=== PATIENT | male | born 1930 | race Caucasian/White ===

== ENCOUNTER 2018-10-14 12:41 | Emergency (ER) | payer MEDICARE, OTHER ==
[2018-10-14] MEDS ORDERED: Ondansetron 4 MG Tab.DIS PO ONE (13:12)
--- NOTE | 2018-10-14 13:57 | EDM.PDOC ---
ED HPI GENERAL MEDICAL PROBLEM - General Chief Complaint: Gastrointestinal Problem Stated Complaint: Vomiting Time Seen by Provider: 10/14/18 12:50 Source of Information: Reports: Patient, Family (Patient's son and give some of the history as well.) History Limitations: Reports: No Limitations - History of Present Illness INITIAL COMMENTS - FREE TEXT/NARRATIVE: 88-year-old male with history of intermittent vomiting for years who apparently has had worse vomiting since 10/12/2018. He had 3-4 episodes of vomiting yesterday and 5 episodes of vomiting today. Each time he was able to drink liquids after the vomiting and was able to tolerate those well. He apparently is not eaten much since 10/12/2018. No bowel movement today. But a normal bowel movement yesterday. No abdominal pain. He has mild nausea now. No weakness or dizziness. No chest pain. No trouble breathing. He rates his pain as a 0/10. There are no other associated signs or symptoms. There are no other modifying factors. Onset: Other (Patient with ongoing problems with vomiting for the past few years. Has been evaluated at the [facility] with no recommendations or solution per family.) Duration: Getting Worse (Increased vomiting since 10/12/2018. Vomiting 5 today and 3-4 yesterday.) Location: Reports: Other (No pain) Quality: Reports: Other (No pain) Severity: Mild (Nausea only and this is mild) Improves with: Reports: None Worsens with: Reports: Other (Apparently the son feels that he has vomiting after eating meat. He is able to swallow water after the vomiting without any problems.) Context: Reports: Other (As above) Associated Symptoms: Reports: No Other Symptoms (Other than above) Other Treatments UI UX DEVELOPER: Nothing - Related Data Allergies Allergy/AdvReac Type Severity Reaction Status Date / Time No Known Allergies Allergy Verified 10/14/18 12:53 Home Meds: Home Meds Ondansetron [Zofran ODT] 4 mg PO Q6H PRN #12 tab.dis 10/14/18 [Rx] Past Medical History HEENT History: Reports: Impaired Vision Genitourinary History: Reports: Renal Calculus - Past Surgical History HEENT Surgical History: Reports: Tonsillectomy GI Surgical History: Reports: Colonoscopy, EGD Social & Family History - Tobacco Use Smoking Status *Q: Never Smoker - Caffeine Use Caffeine Use: Reports: Coffee - Alcohol Use Alcohol Use History: Yes Alcohol Use Frequency: Rarely - Living Situation & Occupation Living situation: Reports: (He is here with his and his son.) Occupation: Retired (He is a retired pharmacist.) Social History Comment: He lives independently with his . ED ROS GENERAL - Review of Systems Review Of Systems: See Below Constitutional: Reports: Fatigue HEENT: Reports: No Symptoms Respiratory: Reports: No Symptoms Cardiovascular: Reports: No Symptoms Endocrine: Reports: Fatigue GI/Abdominal: Reports: Nausea, Vomiting : Reports: No Symptoms Musculoskeletal: Reports: No Symptoms Skin: Reports: No Symptoms Neurological: Denies: Dizziness, Headache, Gait Disturbance Hematologic/Lymphatic: Reports: No Symptoms Immunologic: Reports: No Symptoms ED EXAM, GENERAL - Physical Exam Exam: See Below Exam Limited By: No Limitations General Appearance: Alert, WD/WN, No Apparent Distress Eye Exam: Bilateral Eye: EOMI, Normal Inspection, PERRL Ears: Normal External Exam, Hearing Grossly Normal Nose: Normal Inspection, Normal Mucosa, No Blood Throat/Mouth: Normal Inspection, Normal Oropharynx, Normal Voice, No Airway Compromise Head: Atraumatic, Normocephalic Neck: Normal Inspection, Supple, Non-Tender, Full Range of Motion Respiratory/Chest: No Respiratory Distress, Lungs Clear, Normal Breath Sounds, No Accessory Muscle Use, Chest Non-Tender Cardiovascular: Normal Peripheral Pulses, Regular Rate, Rhythm, No JVD, No Murmur Peripheral Pulses: 2+: Radial (L), Radial (R) GI/Abdominal: Normal Bowel Sounds, Soft, Non-Tender, No Organomegaly, No Mass Back Exam: Normal Inspection Extremities: Normal Inspection, Normal Range of Motion, Non-Tender, No Pedal Edema, Normal Capillary Refill Neurological: Alert, Oriented, CN II-XII Intact, Normal Cognition, No Motor/ Sensory Deficits Psychiatric: Normal Affect, Normal Mood Skin Exam: Warm, Dry, Intact, Normal Color, Rash (Rash on scalp and face which is reported to be chronic.) Lymphatic: No Adenopathy Course - Vital Signs Last Recorded V/S: Last Vital Signs Temp 36.7 C 10/14/18 12:45 Pulse 81 10/14/18 12:45 Resp 16 10/14/18 12:45 BP 115/56 L 10/14/18 12:45 Pulse Ox 97 10/14/18 12:45 Orthostatic Blood Pressure [ 93/69 Standing] Orthostatic Blood Pressure [ 109/59 Sitting] Orthostatic Blood Pressure [ 111/58 Supine] - Orders/Labs/Meds Orders: Active Orders 24 hr Category Date Time Status Orthostatic Vital Signs [RC] ASDIRECTED Care 10/14/18 13:10 Active Labs: Laboratory Tests 10/14/18 10/14/18 10/14/18 Range/Units 13:35 13:35 13:35 WBC 7.5 (4.5-12.0) X10-3/uL RBC 4.05 L (4.30-5.75) x10(6)uL Hgb 13.2 L (13.5-17.8) g/dL Hct 37.6 (30.0-51.3) % MCV 92.7 (80-96) fL MCH 32.6 (27.7-33.6) pg MCHC 35.2 (32.2-35.4) g/dL RDW 12.8 (11.5-15.5) % Plt Count 201 (125-369) X10(3)uL MPV 8.0 (7.4-10.4) fL Neut % (Auto) 61.2 (46-82) % Lymph % (Auto) 26.7 (13-37) % [place] % (Auto) 11.3 (4-12) % Eos % (Auto) 1 (1.0-5.0) % Baso % (Auto) 0 (0-2) % Neut # (Auto) 4.7 (1.6-8.3) # Lymph # (Auto) 2.0 (0.6-5.0) # [place] # (Auto) 0.8 (0.0-1.3) # Eos # (Auto) 0.0 (0.0-0.8) # Baso # (Auto) 0.0 (0.0-0.2) # Sodium 139 (135-145) mmol/L Potassium 4.3 (3.5-5.3) mmol/L Chloride 104 (100-110) mmol/L Carbon Dioxide 29 (21-32) mmol/L BUN 23 H (7-18) mg/dL Creatinine 1.0 (0.70-1.30) mg/dL Est Cr Clr Drug Dosing 43.56 mL/min Estimated GFR (MDRD) > 60 (>60) BUN/Creatinine Ratio 23.0 H (9-20) Glucose 108 (80-116) mg/dL Calcium 9.2 (8.6-10.2) mg/dL Magnesium 1.8 (1.8-2.5) mg/dL Total Bilirubin 0.5 (0.1-1.3) mg/dL AST 18 (5-25) IU/L ALT 19 (12-36) U/L Alkaline Phosphatase 80 (56-112) IU/L C-Reactive Protein 0.4 L (0.5-0.9) mg/dL Total Protein 7.9 (6.0-8.0) g/dL Albumin 3.3 (2.9-4.5) g/dL Globulin 4.6 g/dL Albumin/Globulin Ratio 0.7 Meds: Medications Discontinued Medications Generic Name Dose Route Start Last Admin Trade Name Freq PRN Reason Stop Dose Admin Ondansetron HCl 4 mg 10/14/18 13:12 10/14/18 13:29 Zofran Odt PO 10/14/18 13:13 4 mg ONETIME ONE Administration - Re-Assessments/Exams Free Text/Narrative Re-Assessment/Exam: 10/14/18 15:28: Patient's lab test are reassuringly normal. He had a small amount of emesis initially but he has has taken by mouth well without further emesis. He feels well. And he wishes to go home. I will provide him with Zofran that he can take intermittently for nausea and vomiting. He is to follow-up with his primary doctor. He is to increase his fluid intake. He should avoid any foods that he feels may trigger this vomiting. Departure - Departure Time of Disposition: 15:30 Disposition: Home, Self-Care 01 Condition: Good Clinical Impression: Vomiting - Discharge Information Prescriptions: Ondansetron [Zofran ODT] 4 mg PO Q6H PRN #12 tab.dis PRN Reason: Nausea/Vomiting Referrals: Vish Bahena MD [Primary Care Provider] - Forms: ED Department Discharge Additional Instructions: I am unsure why you are having the vomiting. Your blood tests were reassuringly normal. You were able to drink liquids here today after the nausea medication and you tolerated these liquids well. You should plan on following up with your primary doctor this week or next for recheck. Medication as prescribed for nausea and vomiting (Zofran 4 mg ODT). Back to the emergency department for unrelenting vomiting, abdominal pain, chest pain, fever, inability to take liquids or any other concerning sign or symptom. - My Orders Last 24 Hours: My Active Orders 10/14/18 13:10 Orthostatic Vital Signs [RC] ASDIRECTED - Assessment/Plan Last 24 Hours: My Active Orders 10/14/18 13:10 Orthostatic Vital Signs [RC] ASDIRECTED
== END 2018-10-14 16:08 | disposition home or self-care (01) ==
LOC: FB.ED 12:41
DX: R11.2 Nausea with vomiting, unspecified (principal)
CPT/HCPCS: 36415; 80053; 83735; 85025; 86140; 99283; A9270